=== PATIENT | male | born 1985 | race Caucasian/White ===

== ENCOUNTER 2016-03-19 02:35 | Emergency (ER) | payer MEDICARE | END 2016-03-19 07:58 | disposition home or self-care (01) | LOC: D.ER 02:35 | DX: I60.9 Nontraumatic subarachnoid hemorrhage, unspecified (principal); S02.609A Fracture of mandible, unspecified, initial encounter for closed fracture; Y04.2XXA Assault by strike against or bumped into by another person, initial encounter; Y93.89 Activity, other specified; Y92.89 Other specified places as the place of occurrence of the external cause; K21.9 Gastro-esophageal reflux disease without esophagitis; H91.3 Deaf nonspeaking, not elsewhere classified ==

== ENCOUNTER 2016-03-30 09:59 | Emergency (ER) | payer MEDICARE | END 2016-03-30 10:43 | disposition home or self-care (01) | LOC: D.ER 09:59 | DX: K08.89 Other specified disorders of teeth and supporting structures (principal); K21.9 Gastro-esophageal reflux disease without esophagitis; F41.9 Anxiety disorder, unspecified; H91.3 Deaf nonspeaking, not elsewhere classified ==

== ENCOUNTER 2016-04-13 10:13 | Emergency (ER) | payer MEDICARE | END 2016-04-13 11:45 | disposition home or self-care (01) | LOC: D.ER 10:13 | DX: K13.79 Other lesions of oral mucosa (principal); K21.9 Gastro-esophageal reflux disease without esophagitis; F41.9 Anxiety disorder, unspecified; H91.3 Deaf nonspeaking, not elsewhere classified ==